=== PATIENT | male | born 1980 | race Caucasian/White ===

== ENCOUNTER 2024-03-01 12:37 | Outpatient (CLI) | payer MEDICAID | END 2024-03-01 23:59 | disposition home or self-care (01) | LOC: RAD 12:37 | PROVIDERS: ATTEND Family Medicine | DX: R05.3 Chronic cough (principal) | CPT/HCPCS: 71046 ==

== ENCOUNTER 2024-03-15 12:56 | Outpatient (CLI) | payer MEDICAID ==
[~2024-03-15] VITALS: Ht 175.3 cm; Wt 109.8 kg
[2024-03-15] MEDS: albuterol 2.5 MG/3 ML nebule NEB ONE (13:41)
[2024-03-15 13:42] VITALS: PULSE 62; RESP 16; O2SAT 98
== END 2024-03-15 23:59 | disposition home or self-care (01) ==
LOC: RT 12:56
PROVIDERS: ATTEND Physician Assistant
DX: R05.3 Chronic cough (principal)
CPT/HCPCS: 94060; 94760

== ENCOUNTER 2024-05-12 14:19 | Emergency (ER) | payer MEDICAID ==
[~2024-05-12] VITALS: Ht 175.3 cm; Wt 108.0 kg
[2024-05-12 14:22] VITALS: BP 143/90; PULSE 84; TEMP 98; O2SAT 97
[2024-05-12] MEDS: LIDOcaine 1% 30ml preserv. free vial SQ STA (16:04)
[2024-05-12] MEDS: TETanus/Pertussis (Acell)/Diphther VAC/PF (Tdap-Adult) 0.5ml syringe IMVAC ONE (16:18)
[2024-05-12] MEDS ORDERED: CEPH-585 PO (16:44)
[2024-05-12 16:48] VITALS: RESP 20
== END 2024-05-12 16:48 | disposition home or self-care (01) ==
LOC: ER 14:19
DX: S61.212A Laceration without foreign body of right middle finger without damage to nail, initial encounter (principal); Z79.2 Long term (current) use of antibiotics; W04.XXXA Fall while being carried or supported by other persons, initial encounter; Y93.89 Activity, other specified; Y92.89 Other specified places as the place of occurrence of the external cause; Y99.8 Other external cause status
CPT/HCPCS: 12001; 90471; 90715; 99283; A6449